=== PATIENT | male | born 1955 | race Asian ===

== ENCOUNTER → 2018-07-21 | Outpatient (CLI) | payer BC ==
[2018-07-21 11:02] LABS: ADD MAN DIFF? NO
[2018-07-21 11:06] LABS: BASOPHILS % 0.5 % (0.0-2.0); EOSINOPHILS # 0.1 10^3/ul (0.0-0.5); EOSINOPHILS % 3.3 % (0.0-7.0); HEMOGLOBIN 14.5 g/dl (14.0-18.0); LYMPHOCYTES # 1.1 10^3/ul (0.8-2.9); LYMPHOCYTES % 25.4 % (15.0-51.0); MEAN CORPUSCULAR HEMOGLOBIN 30.4 pg (29.0-33.0); MEAN CORPUSCULAR HGB CONC 33.7 g/dl (32.0-37.0); MEAN CORPUSCULAR VOLUME 90.1 fl (82.0-101.0); MEAN PLATELET VOLUME 9.9 fl (7.4-10.4); MONOCYTE # 0.3 10^3/ul (0.3-0.9); MONOCYTES % 6.6 % (0.0-11.0); NEUTROPHIL # 2.7 10^3/ul (1.6-7.5); NEUTROPHILS % 63.7 % (39.0-77.0); PLATELET COUNT 155 10^3/UL (140-415); RED BLOOD COUNT 4.77 10^6/ul (4.70-6.10); RED CELL DISTRIBUTION WIDTH 14.1 % (11.5-14.5)
[2018-07-21 11:06] LABS: WHITE BLOOD COUNT 4.3 10^3/ul (4.8-10.8)
[2018-07-21 11:15] LABS: ADD UMIC NO; UR ASCORBIC ACID 20 mg/dL (NEGATIVE); UR BILIRUBIN (Dip) NEGATIVE (NEGATIVE); UR BLOOD (Dip) NEGATIVE (NEGATIVE); UR CLARITY CLEAR (CLEAR); UR COLOR YELLOW (YELLOW); UR GLUCOSE (Dip) NEGATIVE (NEGATIVE); UR KETONES (Dip) NEGATIVE (NEGATIVE); UR LEUKOCYTE ESTERASE (Dip) NEGATIVE Leu/ul (NEGATIVE); UR NITRITE (Dip) NEGATIVE (NEGATIVE); UR SPECIFIC GRAVITY (Dip) 1.011 (1.003-1.030); UR TOTAL PROTEIN (Dip) NEGATIVE (NEGATIVE); UR UROBILINOGEN (Dip) NEGATIVE (NEGATIVE)
[2018-07-21 11:34] LABS: ALANINE AMINOTRANSFERASE 50 IU/L (13-69); ALBUMIN 4.9 g/dl (3.3-4.9); ALBUMIN/GLOBULIN RATIO 1.04; ALKALINE PHOSPHATASE 63 IU/L (42-121); ANION GAP 6 (5-13); ASPARTATE AMINO TRANSFERASE 74 IU/L (15-46); BILIRUBIN,INDIRECT 0.8 mg/dl (0-1.1); BILIRUBIN,TOTAL 0.8 mg/dl (0.2-1.3); BLOOD UREA NITROGEN 15 mg/dl (7-20); CALCIUM 9.8 mg/dl (8.4-10.2); CARBON DIOXIDE 35 mmol/L (21-31); CHLORIDE 101 mmol/L (97-110); CHOL/HDL RATIO 6.1 RATIO; CHOLESTEROL 252 mg/dl (100-200); CREATININE 1.51 mg/dl (0.61-1.24); Estimated GFR 47 mL/min (>60); GLUCOSE 96 mg/dl (70-220); HDL CHOLESTEROL 41 mg/dl (30-78); LDL CHOLESTEROL,CALCULATED 162 mg/dl; POTASSIUM 3.9 mmol/L (3.5-5.1); SODIUM 142 mmol/L (135-144); TOTAL PROTEIN 9.6 g/dl (6.1-8.1); TRIGLYCERIDES 243 mg/dl (0-149)
[2018-07-21 11:50] LABS: T4 (THYROXINE) 2.2 ug/dl (5.5-11.0)
[2018-07-21 12:15] LABS: PROSTATE SPECIFIC ANTIGEN 1.7 ng/ml (0.0-4.0)
== END | disposition home or self-care (01) ==
LOC: LAB 10:36
DX: Z00.00 Encounter for general adult medical examination without abnormal findings (principal)
CPT/HCPCS: 80053; 80061; 81003; 82652; 84153; 84154; 84436; 84443; 85025

== ENCOUNTER → 2018-08-02 | Outpatient (CLI) | payer BC | END | disposition home or self-care (01) | LOC: RAD 11:41 | DX: M54.12 Radiculopathy, cervical region (principal) | CPT/HCPCS: 72040 ==

== ENCOUNTER → 2018-08-06 | Outpatient (CLI) | payer BC ==
[2018-08-06 08:41] LABS: FREE T4 (FREE THYROXINE) 0.56 ng/dl (0.78-2.44)
[2018-08-06 08:42] LABS: T4 (THYROXINE) 5.7 ug/dl (5.5-11.0)
[2018-08-06 08:42] LABS: FREE T3 3.75 pg/ml (2.77-5.27)
== END | disposition home or self-care (01) ==
LOC: LAB 07:22
DX: E03.9 Hypothyroidism, unspecified (principal)
CPT/HCPCS: 84436; 84439; 84443; 84481

== ENCOUNTER → 2018-12-27 | Outpatient (CLI) | payer BC ==
[2018-12-27 10:50] LABS: FREE T4 (FREE THYROXINE) 0.98 ng/dl (0.78-2.44)
[2018-12-27 11:04] LABS: THYROID STIMULATING HORMONE 0.764 MIU/L (0.465-4.680)
== END | disposition home or self-care (01) ==
LOC: LAB 09:39
DX: E03.9 Hypothyroidism, unspecified (principal)
CPT/HCPCS: 84439; 84443

== ENCOUNTER → 2019-01-14 | Outpatient (CLI) | payer BC ==
[2019-01-14 11:54] LABS: ALANINE AMINOTRANSFERASE 45 IU/L (13-69); ALBUMIN 4.5 g/dl (3.3-4.9); ALBUMIN/GLOBULIN RATIO 1.21; ALKALINE PHOSPHATASE 82 IU/L (42-121); ANION GAP 9 (5-13); BILIRUBIN,INDIRECT 0.7 mg/dl (0-1.1); BILIRUBIN,TOTAL 0.7 mg/dl (0.2-1.3); BLOOD UREA NITROGEN 20 mg/dl (7-20); CALCIUM 9.8 mg/dl (8.4-10.2); CARBON DIOXIDE 29 mmol/L (21-31); CHLORIDE 103 mmol/L (97-110); CREATININE 1.37 mg/dl (0.61-1.24); Estimated GFR 52 mL/min (>60); POTASSIUM 3.7 mmol/L (3.5-5.1); SODIUM 141 mmol/L (135-144); TOTAL PROTEIN 8.2 g/dl (6.1-8.1); URIC ACID 6.2 mg/dl (3.1-7.9)
[2019-01-14 11:55] LABS: ASPARTATE AMINO TRANSFERASE 41 IU/L (15-46); GLUCOSE 104 mg/dl (70-220)
[2019-01-17 23:41] LABS: PSA, FREE 0.5 ng/mL
== END | disposition home or self-care (01) ==
LOC: LAB 11:00
DX: M10.9 Gout, unspecified (principal); R35.1 Nocturia
CPT/HCPCS: 80053; 84153; 84154; 84560